=== PATIENT | female | born 1995 | race Caucasian/White ===

== ENCOUNTER 2017-03-22 18:58 | Emergency (ER) | payer MEDICAID ==
--- NOTE | 2017-03-22 19:50 | ER Document Report ---
HPI - HPI Patient complains to provider of: fever 101, sweating Onset: This morning Pain Level: 3 Context: 21-year-old female complaining of fever of 101 today, nausea, fatique, pelvic pain over weekend with discharge (questionalbe malodorous). 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 Hx chlamydia, G0. No missed oral contraceptive, no flank pain, no sorethroat, runny nose or cough. no abdominal pain today, no dysuria, frequency , urgency. No vomiting or diarrhea. No rash. Associated Symptoms: None Exacerbated by: Denies Relieved by: Denies Similar symptoms previously: No Recently seen / treated by doctor: No - ROS ROS below otherwise negative: Yes Systems Reviewed and Negative: Yes All other systems reviewed and negative - DERM Skin Color: Normal, [place] Past Medical History - General Information source: Patient - Social History Smoking Status: Never Smoker Frequency of alcohol use: None Drug Abuse: None Lives with: Family Family History: Reviewed & Not Pertinent - Medical History Medical History: Negative Renal/ Medical History: Denies: Hx Peritoneal Dialysis Surgical Hx: Negative Vertical Provider Document - CONSTITUTIONAL Agree With Documented VS: Yes Exam Limitations: No Limitations - INFECTION CONTROL TRAVEL OUTSIDE OF THE [place] IN LAST 30 DAYS: No - HEENT HEENT: Normal ENT Exam, Normocephalic. negative: Conjuctival Injection, Pharyngeal Erythema, Tympanic Membrane Red - NECK Neck: Supple. negative: Lymphadenopathy-Left, Lymphadenopathy-Right - RESPIRATORY Respiratory: Breath Sounds Normal, No Respiratory Distress O2 Sat by Pulse Oximetry: 100 - CARDIOVASCULAR Cardiovascular: Regular Rate, Regular Rhythm - GI/ABDOMEN Gastrointestinal: Abdomen Soft, Abdomen Non-Tender, No Organomegaly - REPRODUCTIVE Female Genitalia: Normal Inspection. negative: Adnexal Pain-Right, Adnexal Pain -Left - BACK Back: Normal Inspection. negative: CVA Tenderness-Right, CVA Tenderness-Left - MUSCULOSKELETAL/EXTREMETIES Musculoskeletal/Extremeties: JORDEN RICHTER - NEURO Level of Consciousness: Awake, Alert, Appropriate Motor/Sensory: No Motor Deficit, No Sensory Deficit - DERM Integumentary: Warm, Dry, No Rash Course - Re-evaluation Re-evalutation: 03/22/17 21:29 ua trace bacteria, 6 wbc, culture is pending, wet prep negative. test negative 03/22/17 21:30 - Vital Signs Vital signs: Temp Pulse Resp BP Pulse Ox 97.9 F 69 14 110/65 100 03/22/17 19:05 03/22/17 19:05 03/22/17 19:05 03/22/17 19:05 03/22/17 19:05 Discharge - Discharge Clinical Impression: resolved pelvic pain Fever Qualifiers: Fever type: unspecified Qualified Code(s): R50.9 - Fever, unspecified Headache Qualifiers: Headache type: unspecified Headache chronicity pattern: unspecified pattern Intractability: not intractable Qualified Code(s): R51 - Headache Condition: Good Disposition: HOME, SELF-CARE Instructions: Headache ([facility]), Fever ([facility]), Pelvic Pain ([facility]), Acetaminophen Additional Instructions: urine culture is pending std culture is pending take tylenol or the naprosyn for fever see your doctor for follow up tomorrow return to the er if any new symptoms, worsening symptoms rest drink plenty of fluid Please complete the patient satisfaction survey if you get one, and return it.. If you do not receive a survey, then you can go to the [facility] website, [email or web address] and place your comments about your very good care. Thank you very much. It was a pleasure being your medical provider today. Forms: Return to Work
[2017-03-22 21:11] LABS: APPEARANCE,URINE SLIGHTLY-CLOUDY; BILIRUBIN,URINE NEGATIVE (NEGATIVE); GLUCOSE, URINE NEGATIVE (NEGATIVE); KETONES,URINE NEGATIVE (NEGATIVE); LEUKOCYTE ESTERASE,URINE MODERATE (NEGATIVE); NITRITE,URINE NEGATIVE (NEGATIVE); PROTEIN,URINE NEGATIVE (NEGATIVE); URINE SPECIFIC GRAVITY 1.024; UROBILINOGEN,URINE NEGATIVE mg/dL (<2.0)
[2017-03-22 21:56] VITALS: BP 114/70
[2017-03-22 22:41] LABS: CHLAM PCR NOT DETECTED (NOT DETECT)
== END 2017-03-22 21:54 | disposition home or self-care (01) ==
LOC: ER 18:58
DX: R50.9 Fever, unspecified (principal); R10.2 Pelvic and perineal pain; R61 Generalized hyperhidrosis; R51 Headache; R11.0 Nausea; R53.83 Other fatigue; N89.8 Other specified noninflammatory disorders of vagina; Z79.3 Long term (current) use of hormonal contraceptives; Z32.02 Encounter for pregnancy test, result negative
CPT/HCPCS: 81001; 81025; 87086; 87210; 87491; 87591; 99283

== ENCOUNTER → 2017-04-11 | Outpatient (CLI) | payer MEDICAID ==
--- NOTE | 2017-04-11 10:52 | RADIOLOGY REPORT (SQ) ---
EXAM DESCRIPTION: CHEST PA/LATERAL COMPLETED DATE/TIME: 04/11/2017 10:44 am REASON FOR STUDY: DECREASED WHITE BLOOD CELL COUNT, UNSPECIFIED COMPARISON: None. TECHNIQUE: Frontal and lateral radiographic views of the chest acquired. NUMBER OF VIEWS: Two view. LIMITATIONS: None. FINDINGS: LUNGS AND PLEURA: No opacities, masses or pneumothorax. No pleural effusion. MEDIASTINUM AND HILAR STRUCTURES: No masses or contour abnormalities. HEART AND VASCULAR STRUCTURES: Heart normal size. No evidence for failure. BONES: No acute findings. HARDWARE: None in the chest. OTHER: No other significant finding. IMPRESSION: NO SIGNIFICANT RADIOGRAPHIC FINDING IN THE CHEST. TECHNICAL DOCUMENTATION: JOB ID: [id number] [employer]- All Rights Reserved
== END ==
LOC: OD 10:29
PROVIDERS: ATTEND Nurse Practitioner
DX: D72.819 Decreased white blood cell count, unspecified (principal)
CPT/HCPCS: 71020

== ENCOUNTER 2017-05-03 09:00 | Outpatient (CLI) | payer MEDICAID ==
[~2017-05-03 09:00] MED LIST: FERRIC CARBOXYMALTOSE 750 MG in NORMAL SALINE 250 ML IV PRN; NORMAL SALINE 250 ML IV PRN
[2017-05-03 09:33] VITALS: BP 108/65
== END 2017-05-03 10:14 | disposition home or self-care (01) ==
LOC: II 09:00 → 5TH 09:02 → II 10:14
PROVIDERS: ATTEND Internal Medicine
PROC: 3E033GC Introduction of Other Therapeutic Substance into Peripheral Vein, Percutaneous Approach (ICD-10-PCS; principal; 2017-05-03)
DX: D50.8 Other iron deficiency anemias (principal); K90.9 Intestinal malabsorption, unspecified
CPT/HCPCS: 96365; J7050; J1439

== ENCOUNTER 2017-05-10 09:02 | Outpatient (CLI) | payer MEDICAID ==
[2017-05-10 09:31] VITALS: BP 100/52
== END 2017-05-10 09:52 | disposition home or self-care (01) ==
LOC: II 09:02 → 5TH 09:04 → II 09:52
PROVIDERS: ATTEND Internal Medicine
PROC: 3E033GC Introduction of Other Therapeutic Substance into Peripheral Vein, Percutaneous Approach (ICD-10-PCS; principal; 2017-05-10)
DX: D50.8 Other iron deficiency anemias (principal); K90.9 Intestinal malabsorption, unspecified
CPT/HCPCS: 96365; J7050; J1439